=== PATIENT | female | born 1955 | race Caucasian/White ===

== ENCOUNTER 2019-02-20 10:03 | Day surgery (SDC) | payer OTHER ==
[2019-02-19 12:54] VITALS: BMI 19.1
[2019-02-20] MEDS ORDERED: BUPIVACAINE HCL/PF 2.5 MG/ML - 30 ML VIAL IJ ONE (12:31)
[2019-02-20] MEDS ORDERED: ONDANSETRON 4 MG/2 ML VIAL ONE ×2 (13:06→14:04)
[2019-02-20] MEDS ORDERED: DEXAMETHASONE SOD PHOSPHATE 4 MG/1 ML VIAL ONE (13:06)
[2019-02-20] MEDS ORDERED: MIDAZOLAM HCL 2 MG/2 ML SINGLE DOSE VIAL ONE (13:06)
[2019-02-20] MEDS ORDERED: PROPOFOL 20 ML ONE (13:12)
[2019-02-20] MEDS ORDERED: ceFAZolin SODIUM 1 GM VIAL ONE (13:12)
[2019-02-20] MEDS ORDERED: BUPIVACAINE HCL/PF 0.25% (2.5MG/ML) 10 ML VIAL IJ ONE (13:37)
[2019-02-20] MEDS ORDERED: oxyCODONE HCL 5 MG TABLET PO PRN ×2 (13:38)
[2019-02-20] MEDS ORDERED: ONDANSETRON 4 MG/2 ML VIAL IVPUSH PRN (13:38)
[2019-02-20] MEDS ORDERED: LACTATED RINGERS SOLUTION 1,000 ML IV SCH (13:45)
--- NOTE | 2019-02-20 14:31 | OP ---
DATE OF OPERATION: 02/20/2019 Done at [facility] SURGEON: Michel Blanton MD CLINICAL LABORATORY TECHNOLOGIST: LINDEN Berrios PREOPERATIVE DIAGNOSES: 1. Right knee medial and lateral meniscal tear. 2. Right knee cartilage injury. 3. Right knee synovitis. POSTOPERATIVE DIAGNOSES: 1. Right knee medial and lateral meniscal tear. 2. Right knee cartilage injury. 3. Right knee synovitis. PROCEDURE: 1. Right knee arthroscopy with partial meniscectomy medial and lateral meniscus, CPT code 13470. 2. Right knee arthroscopy with chondroplasty, CPT code 06871. 3. Right knee arthroscopy with synovectomy, CPT code 07549. FINDINGS: 1. Medial meniscus [id number] horn tear inner 1/3. 2. Lateral meniscus central body tear. 3. Synovitis patellofemoral medial and lateral notch area. 4. Minimal cartilage changes medial lateral joint line. 5. ACL and PCL intact. 6. Minor grade 1-2 changes patella and patellofemoral trochlea. PROCEDURE: Informed consent was obtained. The patient came to the operating room, where the lower extremity was prepped and draped in a sterile fashion. A tourniquet was placed on the upper thigh, but not inflated. Using standard arthroscopic technique, a lateral incision and portal was made to allow for introduction of the camera into the suprapatellar bursa. This was then taken to the medial joint line, where under direct visualization, a medial incision and portal was made. Excessive synovium noted in the medial, lateral and patellofemoral and notch area was removed by an upbiter, shaver and Bovie cautery. This was found to bring in inflammatory tissue into the joint surface, a source of pain and dysfunction. Probing of the medial and lateral meniscus found tears, as described in the findings. These were removed with the upbiter and shaver and taken back to a stable rim. Grade 2 to 3 degenerative changes were treated with a chondroplasty, removing all flaking surfaces with low-setting Bovie along the periphery to prevent further flaking. Grade 4 changes, as noted, were treated with an abrasoplasty, creating a bleeding surface at the bone/cartilage interface. Aggressive debridement with shaver/nickolas created bleeding surface. Micro fracture also done when indicated in findings. All areas of the knee were once again reexamined. The knee was then drained and a single suture was placed in all portals. A sterile dressing was placed and the patient was transferred to the recovery room without complication. The PA listed above was present and assisted at surgery. Their presence was absolutely medically necessary for the completion of the procedure. They helped hold the arthroscopy, pass instruments (and implants when indicated) and the procedure could not have been completed without their assistance. MICHEL BLANTON M.D. [id number]
[2019-02-20 16:28] VITALS: PULSE 70
[2019-02-20 17:33] VITALS: BP 118/71; TEMP 98
--- NOTE | 2019-02-25 15:59 | PATH ---
Surgical Pathology Report Patient Name: BASILIA GOTTI [facility]. Rec. #: [id number] /Age/Gender: 1955 (Age: 63) / F Account: [id number] Location: [facility] AMBULATORY Taken: 02/20/2019 Received: 02/20/2019 Reported: 02/25/2019 Physicians: Michel Gorman M.D. Specimen(s) Received RIGHT KNEE SHAVINGS Clinical History Right knee derangement Final Diagnosis KNEE, RIGHT, ARTHROSCOPIC SHAVINGS: FIBROSYNOVIAL TISSUE AND CARTILAGE. Electronically Signed Dasha Jean M.D. Gross Description Received in formalin, labeled "right knee shavings," is a 3.5 x 3.0 x 0.3 cm. aggregate of stover-yellow soft tissue fragments. A primary care sales representative portion is submitted in one cassette. /02/24/2019 saudi02/24/2019
== END 2019-02-20 16:10 | disposition home or self-care (01) ==
LOC: FASU 10:03
PROVIDERS: ATTEND Orthopaedic Surgery
PROC: 0SBC4ZZ Excision of Right Knee Joint, Percutaneous Endoscopic Approach (ICD-10-PCS; 2019-02-20)
PROC: 0SBC4ZZ Excision of Right Knee Joint, Percutaneous Endoscopic Approach (ICD-10-PCS; 2019-02-20)
PROC: 0SBC4ZZ Excision of Right Knee Joint, Percutaneous Endoscopic Approach (ICD-10-PCS; principal; 2019-02-20 13:29)
DX: S83.241A Other tear of medial meniscus, current injury, right knee, initial encounter (principal); S83.281A Other tear of lateral meniscus, current injury, right knee, initial encounter; S83.8X1A Sprain of other specified parts of right knee, initial encounter; M65.861 Other synovitis and tenosynovitis, right lower leg; X58.XXXA Exposure to other specified factors, initial encounter; Y93.9 Activity, unspecified; Y92.9 Unspecified place or not applicable
CPT/HCPCS: 88304-TC; 94760